=== PATIENT | male | born 1945 | race Caucasian/White ===

== ENCOUNTER 2019-07-22 17:36 | Emergency (ER) | payer MEDICARE, OTHER ==
[~2019-07-22] VITALS: Ht 180.3 cm; Wt 95.8 kg
[~2019-07-22 17:36] MED LIST: ALPR1TAB2 PO; BENA20TA54 PO; BUPR100T6 PO; CETI10TA32 PO; CHOL2000 PO; DILT120T3 PO; FLUO20CA19 PO; FURO-93 PO; HYDR-36 PO; OMEP20TA62 PO; SILD100T PO; TADA5TAB2 PO; VILA40TA PO; ZOLP10TA PO
--- NOTE | 2019-07-22 20:01 | NUR ---
PT PLACED IN ROOM IN GOWN AND AWAITING ERP AND ORDERS.
[2019-07-22] MEDS ORDERED: DEXAMETHASONE 4 MG TABLET PO ONE (20:30)
[2019-07-22] MEDS ORDERED: DEXAMETHASONE 4 MG TABLET ONE (20:31)
[2019-07-22 21:40] VITALS: BP 160/79
== END 2019-07-22 21:41 | disposition home or self-care (01) ==
LOC: ED 19:26
DX: J02.9 Acute pharyngitis, unspecified (principal); B34.9 Viral infection, unspecified; J01.00 Acute maxillary sinusitis, unspecified; K21.9 Gastro-esophageal reflux disease without esophagitis; I10 Essential (primary) hypertension; J02.8 Acute pharyngitis due to other specified organisms
CPT/HCPCS: 87081; 87880; 93005; 99284

== ENCOUNTER 2020-09-02 15:28 | Emergency (ER) | payer MEDICARE, OTHER ==
[~2020-09-02] VITALS: Ht 180.3 cm; Wt 95.5 kg
[~2020-09-02 15:28] MED LIST changes: +HYDR-3246 PO; -HYDR-36 PO
--- NOTE | 2020-09-02 15:45 | NUR ---
PT BIB BY EMS. PT HAD A TELEHEALTH APPT AND WAS ADVISED THAT HE NEEDED TO GO IN DUE LOW SPO2 LEVELS. PER EMS PT WAS 86% RA. PT ON 2 LPM VIA NC BY EMS AND WAS SATING 96%. PT REMOVED FROM O2 AND MAINTAINED SATS AT 91-92%. PT DENIES SOB AND CP. CURRENTLY PT HAS SORE THROAT AND CONGESTION. PT WAS DIAGNOSED RECENTLY WITH COVID, UNK WHERE. PT'S SPOUSE ALSO HAS COVID.
[2020-09-02] MEDS ORDERED: FILTER 0.22 MICRON IV ONE (19:00)
[2020-09-02] MEDS ORDERED: BAMLANIVIMAB 700 MG in SODIUM CHLORIDE 0.9% 180 ML IVPB ONE (19:00)
--- NOTE | 2020-09-02 19:23 | NUR ---
REPORT RECEIVED FROM JAIME HERRERA. PT RESTING ON [employer] W/ CALL LIGHT IN REACH AND SIDE RAILS UPX2. PER PREVIOUS RN, MEDICAL TRANSCRIBER UNABLE TO START PIV AFTER X3 ATTEMPTS. PIV STARTED BY THIS RN, ABX STARTED PER EMAR. VS UPDATED, VSS, NADN.
--- NOTE | 2020-09-02 19:50 | NUR ---
PT DENIES ANY NEW SYMPTOMS SINCE BAM INFUSION STARTED, VSS, NADN.
[2020-09-02 21:24] VITALS: BP 120/53
--- NOTE | 2020-09-02 21:44 | NUR ---
Patient given discharge instructions and they have confirmed that they understand the instructions. Patient ambulatory with steady gait.
== END 2020-09-02 21:45 | disposition home or self-care (01) ==
LOC: ED 16:52
DX: U07.1 COVID-19 (principal); J06.9 Acute upper respiratory infection, unspecified; R06.02 Shortness of breath; I10 Essential (primary) hypertension; K21.9 Gastro-esophageal reflux disease without esophagitis
CPT/HCPCS: 71045; 87635; 99285; J7050; M0239; Q0239